=== PATIENT | male | born 1990 | race African-American/Black ===

== ENCOUNTER 2021-10-29 14:00 | Emergency (ER) | payer OTHER, SELFPAY ==
[2021-10-29 14:42] VITALS: BP 132/88; PULSE 63; RESP 14; TEMP 36.6; O2SAT 99; BMI 27.4
--- NOTE | 2021-10-29 15:22 | ED.SKABFB ---
HPI - Skin/Abscess/Foreign Bdy <SUE Murry - Last Filed: 10/29/21 17:40> General Chief complaint: Skin/Abscess/Foreign Body Stated complaint: lump on rt. side of back Time Seen by Provider: 10/29/21 14:52 Source: patient Mode of arrival: Ambulatory Limitations: no limitations History of Present Illness HPI narrative: This is a 31-year-old male presents to the emergency department with a lump on his upper back which he reports as being there for one week, describes it as tender, has been growing, denies any drainage or open wound. He denies any substance abuse, states he is in the [place], denies any history of this in the past. Patient reports it as tender, he describes difficulty trying to sleep on his back. He noticed it while he was at the gym working out when he leaned back against the machine. Tetanus up to date: yes Related Data Previous Rx's Medication Instructions Recorded benzoyl peroxide 4 % topical 1 applic topical DAILY #150 mL 10/29/21 cleanser doxycycline hyclate 100 mg tablet 100 mg PO BID 7 days #14 tabs 10/29/21 mupirocin 2 % topical ointment 1 applic topical BID #15 grams 10/29/21 Allergies Allergy/AdvReac Type Severity Reaction Status Date / Time No Known Drug Allergies Allergy Verified 10/29/21 14:45 Review of Systems <SUE Murry - Last Filed: 10/29/21 17:40> Review of Systems Narrative: General: denies fever, chills Head/Neck: denies headache, neck pain Eyes: denies visual changes, eye pain Cardio: denies chest pain, palpitations Respiratory: denies shortness of breath, cough GI: denies abdominal pain, nausea, vomiting, or diarrhea : denies dysuria, hematuria or flank pain MSK: denies new joint pain, muscle weakness or swelling Skin: denies rash, endorses a swollen lump on the right upper back below his scapula Neuro: denies numbness, tingling, dizziness Patient History <SUE Murry - Last Filed: 10/29/21 17:40> Social History Smoking Status: Never smoker Smoking Status: Never smoker alcohol intake frequency: a few times a month Substance Use Type: does not use Exam <SUE Murry - Last Filed: 10/29/21 17:40> Narrative Exam Narrative: Independently reviewed vitals signs and nursing notes. General: cooperative, comfortable, in no acute distress, well groomed, patient's skin tone is dark and difficult to assess for erythema Head: atraumatic, symmetrical facial expressions Neck: supple Eyes: equal round and reactive, EOMI, conjunctiva normal Nose: nares patent, no rhinorrhea Mouth/Throat: moist mucus membranes Cardiovascular: regular rate and rhythm, no peripheral edema, warm extremities Respiratory: normal effort, able to speak in complete sentences, no audible wheezing, stridor, or rales. No retractions or tachypnea. GI: abdomen soft, nontender to palpation, nondistended, no masses, no exquisite tenderness with exam, without guarding or rebound. MSK: moves all extremities, neurovascularly intact, no weakness, normal tone Skin: brisk capillary refill, no rash, fluctuant, firm, 2 cm lump on patient's right back below his scapula. Tenderness to palpation, surrounding firm tissue with fluctuant center Neuro: normal speech and cognition, A&O x3 Psych: mental status is grossly normal, congruent mood, normal affect, pleasant and cooperative Initial Vital Signs Initial Vital Signs: Vital Signs Temperature 97.9 F 10/29/21 14:42 Pulse Rate 63 10/29/21 14:42 Respiratory Rate 14 10/29/21 14:42 Blood Pressure 132/88 10/29/21 14:42 Pulse Oximetry 99 10/29/21 14:42 Oxygen Delivery Method 10/29/21 14:42 <Jocelyn Lewis DO - Last Filed: 10/31/21 08:14> Initial Vital Signs Initial Vital Signs: Vital Signs Temperature 97.9 F 10/29/21 14:42 Pulse Rate 63 10/29/21 14:42 Respiratory Rate 14 10/29/21 14:42 Blood Pressure 132/88 10/29/21 14:42 Pulse Oximetry 99 10/29/21 14:42 Oxygen Delivery Method 10/29/21 14:42 Procedures <SUE Murry - Last Filed: 10/29/21 17:40> Abscess I/D I&D #1: Site: back Side (if applicable): right Sedation/analgesia: none Local Anesthetic: lidocaine 1% and with bicarb Amount of anesthesia used (mL): 2 Technique: needle aspiration Amount of fluid expressed (mL): 4 Irrigation: No Packing used?: none Course <SUE Murry - Last Filed: 10/29/21 17:40> Orders Ordered: Discontinued Medications Ketorolac Tromethamine (Ketorolac 10 Mg Tablet) 10 mg PO NOW ONE Stop: 10/29/21 15:22 Last Admin: 10/29/21 15:35 Dose: 10 mg Documented By: AT Lidocaine/Epinephrine (Lidocaine 1% W/Epi) 1 ml SUBCUT NOW ONE Stop: 10/29/21 15:22 Last Admin: 10/29/21 15:34 Dose: 1 ml Documented By: AT Vital Signs Vital signs: Vital Signs - 8 hr 10/29/21 14:42 Temperature 97.9 F Pulse Rate 63 Respiratory Rate 14 Blood Pressure 132/88 Pulse Oximetry 99 Oxygen Delivery Method Room Air <Jocelyn Lewis DO - Last Filed: 10/31/21 08:14> Orders Ordered: Discontinued Medications Ketorolac Tromethamine (Ketorolac 10 Mg Tablet) 10 mg PO NOW ONE Stop: 10/29/21 15:22 Last Admin: 10/29/21 15:35 Dose: 10 mg Documented By: AT Lidocaine/Epinephrine (Lidocaine 1% W/Epi) 1 ml SUBCUT NOW ONE Stop: 10/29/21 15:22 Last Admin: 10/29/21 15:34 Dose: 1 ml Documented By: AT Vital Signs Vital signs: Vital Signs - 8 hr 10/29/21 14:42 Temperature 97.9 F Pulse Rate 63 Respiratory Rate 14 Blood Pressure 132/88 Pulse Oximetry 99 Oxygen Delivery Method Room Air MDM - Skin/Abscess/Foreign Bdy <SUE Murry - Last Filed: 10/29/21 17:40> MDM Narrative Medical decision making narrative: This is a 31-year-old male presents emergency department with a swollen lump on his upper right back which he has noticed for one week. It has a fluctuant center, approximately 2 cm x 2 cm. Needle aspiration with cara 4 mL purulence drainage. This was sent for culture and Gram stain, this is pending and will follow-up on it. Patient appears to have cellulitis surrounding this,, another clogged pore was notable further down on his back, this was a sebaceous cyst and the drainage was expressed without any incision or needle. Patient tolerated well. Doxycycline b.i.d. for seven days was prescribed as well as benzoyl peroxide cleanser and mupirocin. Presume that this is most likely a clogged pore, patient understands to follow-up with Dermatology if this recurs, understands to continue hot showers since he can not do warm compresses due to the location he can not reach it. Patient is appropriate and amenable to discharge home. Vital signs are stable on repeat examination is unremarkable. Patient has been informed of results. Patient has been given strict return to ER precautions for any new or worsening symptoms. Patient understands to follow up closely with outpatient providers as instructed. Patient understands plan and agrees to discharge home. All questions and concerns answered at this time. Discharge Plan Departure Patient Disposition: Home Clinical Impression: Abscess or cellulitis of back Instructions: DI for Skin Abscess Activity Restrictions/Additional Instructions: *You have been diagnosed with a skin abscess. We will call you if your wound culture grows a bacteria that your antibiotic does not cover. Please take hot showers twice a day to help bring this pus to the surface. You may try benzyl peroxide shower gel to help keep your pores open. I hope you feel better soon. *What to do: *Please continue to take your regular medications as directed. [x ] New medication prescriptions sent to your pharmacy: [ [facility] ] [ ] New medication written as a paper prescription [ ] No new medications given *Please follow up with your primary care provider in 2-3 days, call for an appointment. Let them know you were seen in the Emergency Department and that we asked that you be seen for follow-up. We will electronically transmit a record of today's note if your PCP is in our system *If you do not have a primary care provider please contact [phone] to establish care with one of the [facility] primary care providers. *Return to Emergency Department if you should have any new, worsening or concerning symptoms, such as [fever greater than 101F, chills, worsening pain, persistent vomiting or other bothersome symptoms] Prescriptions: New mupirocin 2 % ointment 1 applic topical BID Qty: 15 0RF Rx Instructions: open lesions benzoyl peroxide 4 % cleanser 1 applic topical DAILY Qty: 150 0RF doxycycline hyclate 100 mg tablet 100 mg PO BID 7 Days Qty: 14 0RF Stand Alone Forms: Work Release Note Visit Report Forms: Patient Portal/API <Jocelyn Lewis DO - Last Filed: 10/31/21 08:14> Cosign ED Attending Leslyature Attestation: I was immediately available in the department for consultation. Documentation has been reviewed. I agree with assessment and plan.
[2021-10-29] MEDS: LIDOCAINE 1% W/EPI 1 ML SUBCUT (15:34)
[2021-10-29] MEDS: KETOROLAC 10 MG TABLET PO (15:35)
== END 2021-10-29 15:48 | disposition home or self-care (01) ==
PROVIDERS: Emergency Provider Nurse Practitioner Critical Care Medicine
DX: L02.212 Cutaneous abscess of back [any part, except buttock and flank] (principal)
CPT/HCPCS: 10060; 87070; 87075; 87205; 99283

== ENCOUNTER 2022-05-20 09:07 | Emergency (ER) | payer OTHER, SELFPAY ==
[2022-05-20 09:32] VITALS: BP 134/63; PULSE 75; RESP 16; TEMP 36.8; O2SAT 99; BMI 28.2
[2022-05-20] MEDS: ACETAMINOPHEN 325 MG TABLET 975 MG PO (09:40)
[2022-05-20 10:51] LABS: Adenovirus Not Detected (Not Detect); B. parapertussis Not Detected (Not Detecte); Bordetella pertussis Not Detected (Not Detecte); Chlamydophila pneumoniae Not Detected (Not Detect); Coronavirus 229E Not Detected (Not Detect); Coronavirus HKU1 Not Detected (Not Detect); Coronavirus NL 63 Not Detected (Not Detect); Coronavirus OC43 Not Detected (Not Detect); Human Metapneumovirus Not Detected (Not Detect); Human Rhinovirus/Enterovirus Not Detected (Not Detect); Influenza A Not Detected (Not Detect); Influenza B Not Detected (Not Detect); Mycoplasma pneumoniae Not Detected (Not Detect); Parainfluenza Virus 1 Not Detected (Not Detect); Parainfluenza Virus 2 Not Detected (Not Detect); Parainfluenza Virus 3 Not Detected (Not Detect); Parainfluenza Virus 4 Not Detected (Not Detect); Respiratory Syncytial Virus Not Detected (Not Detect); SARS- CoV-2 Not Detected (Not Detecte)
--- NOTE | 2022-05-20 11:33 | ED_ITS ---
HPI - General Adult General Chief complaint: Upper Respiratory Symptoms Stated complaint: Chest pain/ribs hurt/headache/weak/T-1 Time Seen by Provider: 05/20/22 11:15 Source: patient Mode of arrival: Ambulatory Limitations: no limitations History of Present Illness HPI narrative: Patient is a 32-year-old male here for evaluation of influenza like illness symptoms for the past week. He states that he is had a headache and week and chest discomfort and cough fatigue for the past several days. No known sick contacts. No fevers. No rashes. No abdominal pain or nausea and vomiting. No interventions prior to arrival Related Data Home Medications Medication Instructions Recorded Confirmed No Known Home Medications 05/20/22 05/20/22 Allergies Allergy/AdvReac Type Severity Reaction Status Date / Time No Known Drug Allergies Allergy Verified 05/20/22 09:37 Review of Systems Constitutional Constitutional: Reports system reviewed and no additional complaints, except as documented Cardiovascular Cardiovascular: Reports system reviewed and no additional complaints, except as documented Respiratory Respiratory: Reports system reviewed and no additional complaints, except as documented Gastrointestinal Gastrointestinal: Reports system reviewed and no additional complaints, except as documented Musculoskeletal Musculoskeletal: Reports system reviewed and no additional complaints, except as documented Integumentary/Breasts Skin/Breast: Reports system reviewed and no additional complaints, except as documented Hematologic/Lymphatic On Anticoagulants: No Patient History Social History Smoking Status: Never smoker Smoking Status: Never smoker alcohol intake frequency: a few times a month Substance Use Type: does not use Exam Initial Vital Signs Initial Vital Signs: Vital Signs Temperature 98.3 F 05/20/22 09:32 Pulse Rate 75 05/20/22 09:32 Respiratory Rate 16 05/20/22 09:32 Blood Pressure 134/63 05/20/22 09:32 Pulse Oximetry 99 05/20/22 09:32 Oxygen Delivery Method 05/20/22 09:32 Const General: cooperative, comfortable and No ill appearing HENMT Head: normal to inspection and normocephalic Resp Effort & Inspection: normal respiratory effort Auscultation: clear to auscultation bilaterally Cardio Rate: regular rate Rhythm: regular rhythm GI Inspection: normal to inspection Skin General: no rashes or lesions noted Neuro General: patient alert, patient awake, patient oriented x3 and moves all extremities Extrem General: normal to inspection Course Orders Ordered: ED Orders 05/20/22 09:40 Respiratory Panel (Film Array) Stat 05/20/22 11:34 XR chest 1V Stat 05/20/22 11:52 Complete Blood Count AUTO DIFF Stat Comprehensive Metabolic Panel Stat Lipase Stat Discontinued Medications Acetaminophen (Acetaminophen 325 Mg Tablet) 975 mg PO NOW ONE Stop: 05/20/22 09:39 Last Admin: 05/20/22 09:40 Dose: 975 mg Documented By: STACI Vital Signs Vital signs: Vital Signs - 8 hr 05/20/22 09:32 Temperature 98.3 F Pulse Rate 75 Respiratory Rate 16 Blood Pressure 134/63 Pulse Oximetry 99 Oxygen Delivery Method Room Air Medical Decision Making Lab Data Lab results reviewed: Yes I reviewed the patient's lab results. 05/20/22 11:52 05/20/22 11:52 Labs: Lab Results 05/20/22 05/20/22 05/20/22 Range/Units 09:40 11:52 11:52 WBC 3.7 L (4.5-11.0) X10^3/uL RBC 5.06 (4.5-5.9) X10^6/uL Hgb 15.0 (13.5-17.5) g/dL Hct 44.1 (41-53) % MCV 87.0 (80-100) fL MCH 29.7 (26-34) PG MCHC 34.1 (30-36) % RDW 13.1 (11.6-14.8) % Plt Count 205 (150-400) X10^3/uL Neut % (Auto) 63.5 (50-75) % Lymph % (Auto) 10.3 L (25-40) % Towns % (Auto) 16.8 H (3-14) % Eos % (Auto) 8.6 H (2-4) % Baso % (Auto) 0.8 (0-2) % Neut # (Auto) 2300 (9630-5101) /uL Lymph # (Auto) 400 L (6797-4359) /uL Towns # (Auto) 600 (0-900) /uL Eos # (Auto) 300 (0-450) /uL Baso # (Auto) 0 (0-100) /uL Sodium 137 (137-145) mmol/L Potassium 3.9 (3.4-5.1) mmol/L Chloride 97 L (98-107) mmol/L Carbon Dioxide 27 (22-32) mmol/L BUN 17 (9-20) mg/dL Creatinine 1.11 (0.66-1.25) mg/dL Estimated GFR > 60 (>60) mL/min BUN/Creatinine Ratio 15.3 (6-22) Glucose 91 (70-100) mg/dL Calcium 9.4 (8.4-10.2) mg/dL Total Bilirubin 0.6 (0.2-1.3) mg/dL AST 47 (17-59) IU/L ALT 56 H (<50) IU/L Alkaline Phosphatase 66 (38-126) U/L Total Protein 8.5 H (6.3-8.2) g/dL Albumin 4.7 (3.5-5.0) g/dL Globulin 3.8 (1.7-4.1) g/dL Albumin/Globulin Ratio 1.2 (1.0-2.8) Lipase 77 (23-300) U/L Chlamy pneumoniae PCR Not detected (Not Detect) Adenovirus (PCR) Not detected (Not Detect) B. pertussis DNA (PCR) Not detected (Not Detecte) B.parapertussis DNA PCR Not detected (Not Detecte) Coronavirus OC43 (PCR) Not detected (Not Detect) Coronavirus HKU1 (PCR) Not detected (Not Detect) Coronavirus 229E (PCR) Not detected (Not Detect) SARS-CoV-2 (PCR) Not detected (Not Detecte) Coronavirus NL63 (PCR) Not detected (Not Detect) Human Metapneumovir PCR Not detected (Not Detect) Influenza Type A (PCR) Not detected (Not Detect) Influenza Type B (PCR) Not detected (Not Detect) M. pneumoniae (PCR) Not detected (Not Detect) Parainfluenza 1 (PCR) Not detected (Not Detect) Parainfluenza 2 (PCR) Not detected (Not Detect) Parainfluenza 3 (PCR) Not detected (Not Detect) Parainfluenza 4 (PCR) Not detected (Not Detect) RSV (PCR) Not detected (Not Detect) Entero/Rhino (PCR) Not detected (Not Detect) Imaging Data Chest x-ray: Radiologist's Impression: [address] [address] XRay Report Signed Patient: Mani Barboza MR#: [id number] : 1990 Acct:[id number] Age/Sex: 32 / M Date of Service: 05/20/22 Loc: ED Accession Number: [id number] ?? Procedure: XR chest 1V Ordering Provider: Xu Hay D.O. PROCEDURE:? XR CHEST 1V ? INDICATIONS:? Cough and shortness of breath ? TECHNIQUE:? One view of the chest was acquired.? ? COMPARISON:? None. ? FINDINGS:? ? Surgical changes and devices:? None.? ? Lungs and pleura:? On this semiupright portable chest examination, no large pneumothorax or large pleural effusions are seen.? No focal infiltrates are seen.? ? Mediastinum:? Mediastinal contours appear normal.? Heart size is normal.? ? Bones and chest wall:? No suspicious bony lesions.? Overlying soft tissues appear unremarkable.? IMPRESSION:? No focal infiltrates are seen. ? ? Dictated by: Mark Hinton M.D. on 05/20/2022 at 11:09 ? ? Approved by: Mark Hinton M.D. on 05/20/2022 at 11:09? MDM Narrative Medical decision making narrative: Patient's workup here in the emergency department is very reassuring. His respiratory panel was negative for COVID and flu and other upper respiratory infections. Chest x-ray does not show any signs of pneumonia. He is no abdominal tenderness. No skin changes concerning for cellulitis. He has vague fatigue symptoms. He is not anemic. No indication for antibiotics. Will hold on further workup for now. Will have patient follow-up with his medical department. He was given return precautions. He expressed understanding and agreement. Discharge Plan Departure Patient Disposition: Home Clinical Impression: Fatigue Activity Restrictions/Additional Instructions: I do recommend that you follow-up with your medical department. Be sure that your eating and drinking appropriately. Return to the emergency department for new symptoms. Prescriptions: No Action No Known Home Medications Referrals: ProviderHerrera [Primary Care Provider] - Stand Alone Forms: Patient Portal/API
--- NOTE | 2022-05-20 11:34 | DI.RAD.S_ITS ---
PROCEDURE: XR CHEST 1V INDICATIONS: Cough and shortness of breath TECHNIQUE: One view of the chest was acquired. COMPARISON: None. FINDINGS: Surgical changes and devices: None. Lungs and pleura: On this semiupright portable chest examination, no large pneumothorax or large pleural effusions are seen. No focal infiltrates are seen. Mediastinum: Mediastinal contours appear normal. Heart size is normal. Bones and chest wall: No suspicious bony lesions. Overlying soft tissues appear unremarkable. IMPRESSION: No focal infiltrates are seen. Dictated by: Mark Hinton M.D. on 05/20/2022 at 11:09 Approved by: Mark Hinton M.D. on 05/20/2022 at 11:09
[2022-05-20 12:01] LABS: Add Manual Diff / Slide Review NO; Basophils Absolute Auto 0 /uL (0-100); Basophils Percent Auto 0.8 % (0-2); Eosinophils Absolute Auto 300 /uL (0-450); Eosinophils Percent Auto 8.6 % (2-4); Hematocrit 44.1 % (41-53); Lymphocytes Absolute Auto 400 /uL (1100-4500); Lymphocytes Percent Auto 10.3 % (25-40); Mean Corpuscular HGB Conc 34.1 % (30-36); Mean Corpuscular Hemoglobin 29.7 PG (26-34); Monocytes Absolute Auto 600 /uL (0-900); Monocytes Percent Auto 16.8 % (3-14); Neutrophils Absolute Auto 2300 /uL (1500-7000); Neutrophils Percent Auto 63.5 % (50-75); Platelet Count 205 X10^3/uL (150-400); Red Blood Cell Count 5.06 X10^6/uL (4.5-5.9); Red Cell Distribution Width 13.1 % (11.6-14.8); White Blood Cell Count 3.7 X10^3/uL (4.5-11.0)
[2022-05-20 12:12] LABS: Alanine Aminotransferase 56 IU/L (<50); Albumin 4.7 g/dL (3.5-5.0); Albumin Globulin Ratio 1.2 (1.0-2.8); Alkaline Phosphatase 66 U/L (38-126); Aspartate Aminotransferase 47 IU/L (17-59); BUN Creatinine Ratio 15.3 (6-22); Bilirubin Total 0.6 mg/dL (0.2-1.3); Blood Urea Nitrogen 17 mg/dL (9-20); Calcium 9.4 mg/dL (8.4-10.2); Carbon Dioxide 27 mmol/L (22-32); Chloride 97 mmol/L (98-107); Estimated Glomerular Filt Rate > 60 mL/min (>60); Globulin 3.8 g/dL (1.7-4.1); Glucose 91 mg/dL (70-100); HEMOLYSIS < 15 (0-50); Lipase 77 U/L (23-300); Potassium 3.9 mmol/L (3.4-5.1); Sodium 137 mmol/L (137-145); Total Protein 8.5 g/dL (6.3-8.2)
== END 2022-05-20 12:41 | disposition home or self-care (01) ==
PROVIDERS: Emergency Provider Emergency Medicine
DX: R53.83 Other fatigue (principal); R06.02 Shortness of breath; R51.9 Headache, unspecified; Z20.822 Contact with and (suspected) exposure to COVID-19
CPT/HCPCS: 71045; 80053; 83690; 85025; 87633; 99283; 99284

== ENCOUNTER 2022-12-30 10:18 | Emergency (ER) | payer OTHER, SELFPAY ==
[2022-12-30 10:41] VITALS: BP 111/76; PULSE 93; RESP 14; TEMP 37.4; O2SAT 99; BMI 27.4
--- NOTE | 2022-12-30 10:46 | DI.RAD.S_ITS ---
PROCEDURE: XR CHEST 2V INDICATIONS: cough/fever/body aches TECHNIQUE: 2 views of the chest were acquired. COMPARISON: [facility], CR, XR CHEST 1V, 05/20/2022, 11:34. FINDINGS: Surgical changes and devices: None. Lungs and pleura: Lungs are clear. No pleural effusions or pneumothorax. Mediastinum: Mediastinal contours are normal. Heart size is normal. Bones and chest wall: No suspicious bony abnormalities. Rightward curvature of the thoracic spine. Soft tissues appear unremarkable. IMPRESSION: No acute cardiopulmonary abnormality is seen. Dictated by: Socrates Vera M.D. on 12/30/2022 at 11:39 Approved by: Socrates Vera M.D. on 12/30/2022 at 11:40
[2022-12-30] MEDS: ACETAMINOPHEN 325 MG TABLET 975 MG PO (10:50)
[2022-12-30 11:11] LABS: COVID19 -Nasal RAPID POSITIVE (Negative)
--- NOTE | 2022-12-30 11:54 | ED.URI ---
HPI - URI/Sore Throat <Lisa Galarza PA-C - Last Filed: 12/30/22 12:23> General Chief Complaint: Upper Respiratory Symptoms Stated Complaint: fatigue, loss apetite Time Seen by Provider: 12/30/22 11:35 Source: patient Mode of arrival: Ambulatory History of Present Illness HPI Narrative: 32-year-old male here in the ED for URI symptoms. Returned from deployment 3 days ago. Reports cough, fatigue, loss of appetite, night sweats. Denies difficulty breathing, shortness of breath, fever or chills. He is eating and drinking well. No respiratory difficulties. He has no past medical history of asthma, cardiac issues, or other respiratory issues. He received 2 COVID vaccinations and a booster back in 2020. He has no history of a COVID infection, no history of pneumonia or other severe lower respiratory problems. He is on no medications. Related Data Home Medications Medication Instructions Recorded Confirmed No Known Home Medications 05/20/22 12/30/22 Allergies Allergy/AdvReac Type Severity Reaction Status Date / Time No Known Drug Allergies Allergy Verified 12/30/22 10:45 Review of Systems <Lisa Galarza PA-C - Last Filed: 12/30/22 12:23> Review of Systems ROS Unobtainable: All systems reviewed & are unremarkable except as noted in HPI and below Patient History <Lisa Galarza PA-C - Last Filed: 12/30/22 12:23> Social History Smoking Status: Never smoker Smoking Status: Never smoker alcohol intake frequency: a few times a month Substance Use Type: does not use Exam <Lisa Galarza PA-C - Last Filed: 12/30/22 12:23> Narrative Exam Narrative: GENERAL: [32] year old patient appears stated age. Well-developed patient, in mild distress. HEAD: Atraumatic. Normocephalic. EYES: Pupils equal round and reactive. Extraocular motions intact. No scleral icterus. No injection or drainage. ENT: Nose without bleeding, purulent drainage. Airway patent. NECK: Trachea midline. Non tender CARDIOVASCULAR: Regular rate and rhythm without murmurs, gallops, or rubs. RESPIRATORY: Clear to auscultation. Breath sounds equal bilaterally. No wheezes, rales, or rhonchi. EXTREMITIES: No edema or joint tenderness. NEURO: AOx3. SKIN: No rash or erythema of visible areas Initial Vital Signs Initial Vital Signs: Vital Signs Temperature 99.4 F 12/30/22 10:41 Pulse Rate 93 H 12/30/22 10:41 Respiratory Rate 14 12/30/22 10:41 Blood Pressure 111/76 12/30/22 10:41 Pulse Oximetry 99 12/30/22 10:41 Oxygen Delivery Method Room Air 12/30/22 10:41 <Xu Hay DO - Last Filed: 12/30/22 13:03> Initial Vital Signs Initial Vital Signs: Vital Signs Temperature 99.4 F 12/30/22 10:41 Pulse Rate 93 H 12/30/22 10:41 Respiratory Rate 14 12/30/22 10:41 Blood Pressure 111/76 12/30/22 10:41 Pulse Oximetry 99 12/30/22 10:41 Oxygen Delivery Method Room Air 12/30/22 10:41 Course <Lisa Galarza PA-C - Last Filed: 12/30/22 12:23> Orders Ordered: ED Orders 12/30/22 10:43 COVID19 -Nasal RAPID Stat 12/30/22 10:46 XR chest 2V Stat Discontinued Medications Acetaminophen (Acetaminophen 325 Mg Tablet) 975 mg PO NOW ONE Stop: 12/30/22 10:46 Last Admin: 12/30/22 10:50 Dose: 975 mg Documented By: STACI Vital Signs Vital signs: Vital Signs - 8 hr 12/30/22 10:41 12/30/22 12:05 Temperature 99.4 F 98.9 F Pulse Rate 93 H 80 Respiratory Rate 14 14 Blood Pressure 111/76 108/78 Pulse Oximetry 99 99 Oxygen Delivery Method Room Air Room Air <Xu Hay DO - Last Filed: 12/30/22 13:03> Orders Ordered: ED Orders 12/30/22 10:43 COVID19 -Nasal RAPID Stat 12/30/22 10:46 XR chest 2V Stat Discontinued Medications Acetaminophen (Acetaminophen 325 Mg Tablet) 975 mg PO NOW ONE Stop: 12/30/22 10:46 Last Admin: 12/30/22 10:50 Dose: 975 mg Documented By: BARBARAS Vital Signs Vital signs: Vital Signs - 8 hr 12/30/22 10:41 12/30/22 12:05 Temperature 99.4 F 98.9 F Pulse Rate 93 H 80 Respiratory Rate 14 14 Blood Pressure 111/76 108/78 Pulse Oximetry 99 99 Oxygen Delivery Method Room Air Room Air MDM - URI/Sore Throat <Lisa Galarza PA-C - Last Filed: 12/30/22 12:23> Lab Data Labs: Lab Results 12/30/22 Range/Units 10:43 SARS-CoV-2 (PCR) Positive H (Negative) MDM Narrative Medical decision making narrative: Patient is a 32-year-old male with no active medical problems or past medical history here for upper respiratory symptoms that started yesterday. He reports chills, body aches, fatigue, mild cough. He denies respiratory symptoms such as shortness of breath, wheezing, chest pain. He has reassuring vital signs and a normal PE with no abnormal lung sounds. He is speaking in full sentences without any acute distress. Patient tested positive for COVID today. Advised patient of symptomatic care at home and that there are no specific treatments needed otherwise. He has no red flag symptoms or need for imaging or additional evaluation today. He is stable for discharge. Multiple etiologies for patient's symptoms considered including, but not limited to: COVID, influenza, acute URI, pneumonia Prior Charts reviewed: none Labs reviewed and interpreted by myself: none Imaging reviewed: none Consultations: none Patient's symptoms improved over duration of stay with above-stated therapies. Findings and discharge diagnosis discussed with patient/family followed by verbalization of understanding Return precautions discussed with patient/family whom verbalize understanding of diagnosis and plan <Xu Hay DO - Last Filed: 12/30/22 13:03> Lab Data Labs: Lab Results 12/30/22 Range/Units 10:43 SARS-CoV-2 (PCR) Positive H (Negative) Discharge Plan Departure Patient Disposition: Home Clinical Impression: COVID-19 Instructions: DI for COVID-19 (Suspected or Confirmed ), COVID-19 Activity Restrictions/Additional Instructions: You were seen today for your upper respiratory symptoms and you tested positive for COVID. We discussed at home treatment with [id number] medications and supportive care including hydrating adequately, resting, humidifier. No specific treatment or medications are needed otherwise. Your vital signs were reassuring and you had no symptoms of distress or other concerning findings so no additional imaging or evaluation was needed. Please return to the ED if you experience any new and worsening shortness of breath, chest pain, high prolonged fevers. Prescriptions: No Action No Known Home Medications Referrals: Provider,Herrera [place] [Primary Care Provider] - Stand Alone Forms: Patient Portal/API <Xu Hay DO - Last Filed: 12/30/22 13:03> Cosign ED Attending Cosignature Attestation: Dr Hay Co-Sign Statement: I was available for consultation during this patient's emergency department visit. This chart is signed by myself for administrative purposes only. I did not have direct contact with this patient during this visit. They were seen independently by the APC.
[2022-12-30 12:05] VITALS: BP 108/78; PULSE 80; RESP 14; TEMP 37.2; O2SAT 99
== END 2022-12-30 12:38 | disposition home or self-care (01) ==
PROVIDERS: Emergency Medicine; Emergency Provider Physician Assistant
DX: U07.1 COVID-19 (principal)
CPT/HCPCS: 71046; 87635; 99283; C9803